=== PATIENT | female | born 1995 | race Caucasian/White ===

== ENCOUNTER 2019-02-02 22:08 | Outpatient (CLI) | payer BC | END 2019-02-02 22:09 | disposition critical access hospital (66) | LOC: EMS 22:08 | PROVIDERS: ATTEND Surgery | DX: R41.82 Altered mental status, unspecified (principal); R46.89 Other symptoms and signs involving appearance and behavior | CPT/HCPCS: A0425; A0429 ==

== ENCOUNTER 2019-02-02 22:29 | Emergency (ER) | payer BC ==
--- NOTE | 2019-02-02 22:51 | ED Physician Documentation ---
PD HPI OVERDOSE - Stated complaint Stated Complaint: INGESTION - Chief complaint Chief Complaint: Neuro - History obtained from History obtained from: Patient, EMS - History of Present Illness Timing - onset: Today Subtance(s) ingested: Single (reportedly using THC through the day then had some higher concentrated dose and became poorly responsive. Had some cider (not sure if hardened, but I presumed so) as well. No report of other drugs. No noted injury.) Associated symptoms: Decreased responsiveness Contributing factors: Accidental (no report through EMS of suicidal ideation nor intentional overdose.) Recently seen: Not recently seen Review of Systems Unable to obtain: Unresponsive PD PAST MEDICAL HISTORY - Past Medical History Past Medical History: No Respiratory: None Neuro: None - Present Medications Home Medications: Ambulatory Orders Medication Instructions Recorded Confirmed Home Medications Unobtainable 02/03/19 02/03/19 [HOME MEDICATIONS UNOBTAINABLE] - Allergies Allergies/Adverse Reactions: Allergies Allergy/AdvReac Type Severity Reaction Status Date / Time No Known Drug Allergies Allergy Verified 02/02/19 22:33 - Social History Does the pt smoke?: Yes Smoking Status: Smoker current status unk Does the pt drink ETOH?: No Substance Use and Type: Marijuana PD ED PE NORMAL - Vitals Vital signs reviewed: Yes - General General: Other (Moans and localizes to tactile or mildly painful stimulus. She does not open her eyes. Does not respond to verbal. She is positioned with her head of bed elevated. There is adequate respirations and oxygenation. There is a gag reflex present.) - HEENT HEENT: Atraumatic, PERRL, EOMI (not constricted), Moist mucous membranes, Pharynx benign - Neck Neck: No adenopathy - Cardiac Cardiac: RRR (tachycardic but regular), No murmur - Respiratory Respiratory: No respiratory distress, Clear bilaterally - Abdomen Abdomen: Normal bowel sounds, Non tender, Non distended - Derm Derm: Normal color, Warm and dry - Extremities Extremities: No deformity, No tenderness to palpate, No edema - Neuro Eye Opening: To Pain Motor: Localizes to Pain Verbal: None GCS Score: 8 Results - Vitals Vitals: Vital Signs - 24 hr 02/02/19 02/02/19 02/02/19 22:28 22:34 23:02 Temperature 37.8 C H Heart Rate 122 H 115 H 105 H Respiratory 14 20 Rate Blood Pressure 133/92 H 122/64 O2 Saturation 99 96 02/02/19 02/03/19 02/03/19 23:30 00:00 00:30 Temperature Heart Rate 97 99 81 Respiratory 18 16 16 Rate Blood Pressure 107/54 L 106/53 L 95/45 L O2 Saturation 97 97 95 02/03/19 02/03/19 02/03/19 01:00 01:30 02:00 Temperature 37.0 C Heart Rate 85 77 76 Respiratory 16 17 15 Rate Blood Pressure 98/46 L 98/50 L 94/47 L O2 Saturation 95 95 96 02/03/19 02/03/19 02/03/19 02:30 03:00 03:30 Temperature Heart Rate 73 75 73 Respiratory 16 16 16 Rate Blood Pressure 105/46 L 99/50 L 97/47 L O2 Saturation 95 96 96 02/03/19 02/03/19 02/03/19 04:00 04:30 05:00 Temperature 37.3 C Heart Rate 65 72 81 Respiratory 15 16 15 Rate Blood Pressure 98/54 L 98/46 L 113/56 L O2 Saturation 96 96 100 02/03/19 02/03/19 05:30 06:30 Temperature Heart Rate 70 98 Respiratory 20 16 Rate Blood Pressure 106/47 L 101/53 L O2 Saturation 97 100 Oxygen O2 Source Room air - EKG (time done) 23:02 Rate: Rate (enter#) (116) Rhythm: Sinus tachycardia [place]: Normal Intervals: Normal ND QRS: Normal Ischemia: Normal ST segments. No: ST elevation c/w ischemia, ST depression - Labs Labs: Laboratory Tests 02/02/19 02/02/19 02/02/19 22:44 22:44 22:52 WBC 7.9 RBC 4.42 Hgb 13.2 Hct 38.3 MCV 86.6 MCH 29.9 MCHC 34.6 RDW 13.0 Plt Count 312 MPV 8.1 Neut # (Auto) 5.2 Lymph # (Auto) 2.1 [place] # (Auto) 0.4 Eos # (Auto) 0.1 Baso # (Auto) 0.0 Absolute Nucleated RBC 0.00 Nucleated RBC % 0.0 Sodium 140 Potassium 3.8 Chloride 104 Carbon Dioxide 24 Anion Gap 12.0 BUN 17 Creatinine 0.7 Estimated GFR (MDRD) 106 Glucose 144 H Calcium 9.4 Total Bilirubin 0.7 AST 19 ALT 10 Alkaline Phosphatase 50 Total Protein 7.9 Albumin 4.5 Globulin 3.4 Albumin/Globulin Ratio 1.3 Lipase 22 Urine Color Urine Clarity Urine pH Ur Specific [place] Urine Protein Urine Glucose (UA) Urine Ketones Urine Occult Blood Urine Nitrite Urine Bilirubin Urine Urobilinogen Ur Leukocyte Esterase Ur Microscopic Review Urine Culture Comments Urine HCG, Qual Salicylates < 6.0 Urine Opiates Screen NEGATIVE Ur Oxycodone Screen NEGATIVE Urine Methadone Screen NEGATIVE Ur Propoxyphene Screen NEGATIVE Acetaminophen < 10 L Ur Barbiturates Screen NEGATIVE Ur Tricyclics Screen NEGATIVE Ur Phencyclidine Scrn NEGATIVE Ur Amphetamine Screen NEGATIVE U Methamphetamines Scrn NEGATIVE U Benzodiazepines Scrn NEGATIVE Urine Cocaine Screen NEGATIVE U Cannabinoids Screen POSITIVE H Ethyl Alcohol < 5.0 02/02/19 22:52 WBC RBC Hgb Hct MCV MCH MCHC RDW Plt Count MPV Neut # (Auto) Lymph # (Auto) [place] # (Auto) Eos # (Auto) Baso # (Auto) Absolute Nucleated RBC Nucleated RBC % Sodium Potassium Chloride Carbon Dioxide Anion Gap BUN Creatinine Estimated GFR (MDRD) Glucose Calcium Total Bilirubin AST ALT Alkaline Phosphatase Total Protein Albumin Globulin Albumin/Globulin Ratio Lipase Urine Color YELLOW Urine Clarity CLEAR Urine pH 6.0 Ur Specific [place] 1.020 Urine Protein NEGATIVE Urine Glucose (UA) NEGATIVE Urine Ketones NEGATIVE Urine Occult Blood NEGATIVE Urine Nitrite NEGATIVE Urine Bilirubin NEGATIVE Urine Urobilinogen 0.2 (NORMAL) Ur Leukocyte Esterase NEGATIVE Ur Microscopic Review NOT INDICATED Urine Culture Comments NOT INDICATED Urine HCG, Qual NEGATIVE Salicylates Urine Opiates Screen Ur Oxycodone Screen Urine Methadone Screen Ur Propoxyphene Screen Acetaminophen Ur Barbiturates Screen Ur Tricyclics Screen Ur Phencyclidine Scrn Ur Amphetamine Screen U Methamphetamines Scrn U Benzodiazepines Scrn Urine Cocaine Screen U Cannabinoids Screen Ethyl Alcohol - Rads (name of study) head CT Radiology: Prelim report reviewed (no acute process; normal head CT), See rad report PD MEDICAL DECISION MAKING - ED course Complexity details: reviewed results (Initial blood tests and toxicity tests showed 0 alcohol level and just THC on her drug screen. Given the significant decrease in level of consciousness, I added a CT head to ensure there is no signs of intracranial process. This was normal. Her vitals were stable and her oxygenation was good. I felt comfortable at that point allowing time for metabolism of drugs her medicines and biting her slowly improve. She was kept on the heart monitor and oximeter through the ER course with repeated assessments frequently.), re-evaluated patient (Through the night and had a gradual improvement in her alertness and responsiveness. However it did take several hours overnight. Subsequently she did awake and much more easily was able to answer questions fully. She states she did take the marijuana and that had some alcohol. She denies other drugs. She denies being assaulted. She denies any pains currently. She denies any intentional overdose with idea of hurting herself. She states she just over did the amount of drugs. She will try to call a friend for a ride and that this point would be discharged stable without any problems. Her vitals are good with normal heart rate.), considered differential, d/w patient Departure - Departure Clinical Impression: Overdose, drug Qualifiers: Encounter type: initial encounter Injury intent: accidental or unintentional Qualified Code(s): T50.901A - Poisoning by unspecified drugs, medicaments and biological substances, accidental (unintentional), initial encounter Altered mental status Qualifiers: Altered mental status type: coma Coma depth: [place] coma 3-8 Coma timing: at arrival to emergency department Qualified Code(s): R40.2432 - [place] coma scale score 3-8, at arrival to emergency department Condition: Stable Record reviewed to determine appropriate education?: Yes Instructions: ED Overdose Accidental Comments: Stay well-hydrated Tylenol or ibuprofen if needed for mild pains. Avoid recreational drugs and alcohol for at least several days to your feeling well. Use drugs and alcohol in moderation.
[2019-02-02 22:58] LABS: MUDS CUTOFF CONCENTRATIONS CUTOFF CONC BELOW:
[2019-02-02] MEDS ORDERED: SODIUM CHLORIDE 0.9% 1,000 ML IV ONE (23:00)
[2019-02-02 23:09] LABS: BASOPHILS % (AUTO) 0.5 %; EOSINOPHILS # (AUTO) 0.1 10^3/uL (0.0-0.7); EOSINOPHILS % (AUTO) 1.8 %; HGB - HEMOGLOBIN 13.2 g/dL (12.0-16.0); LYMPHOCYTES # (AUTO) 2.1 10^3/uL (1.5-3.5); LYMPHOCYTES % (AUTO) 26.6 %; MEAN CORPUSCULAR HEMOGLOBIN 29.9 pg (27.0-31.0); MEAN CORPUSCULAR HGB CONC 34.6 g/dL (32.0-36.0); MEAN CORPUSCULAR VOLUME 86.6 fL (81.0-99.0); MEAN PLATELET VOLUME 8.1 fL (7.9-10.8); MONOCYTES # (AUTO) 0.4 10^3/uL (0.0-1.0); MONOCYTES % (AUTO) 4.9 %; NEUTROPHILS # (AUTO) 5.2 10^3/uL (1.5-6.6); NEUTROPHILS % (AUTO) 66.2 %; PLT - PLATELET COUNT 312 10^3/uL (130-450); RED BLOOD COUNT 4.42 10^6/uL (4.20-5.40); WHITE BLOOD COUNT 7.9 x10^3/uL (4.8-10.8)
[2019-02-02 23:10] LABS: BILIRUBIN,URINE NEGATIVE (NEGATIVE); GLUCOSE, URINE (UA) NEGATIVE (NEGATIVE); KETONES,URINE (UA) NEGATIVE (NEGATIVE); LEUKOCYTE ESTERASE, URINE NEGATIVE (NEGATIVE); NITRITE,URINE NEGATIVE (NEGATIVE); OCCULT BLOOD,URINE NEGATIVE (NEGATIVE); PROTEIN,URINE NEGATIVE (NEGATIVE); UROBILINOGEN,URINE 0.2 (NORMAL) E.U./dL (NORMAL)
[2019-02-02 23:11] LABS: CLARITY,URINE CLEAR (CLEAR); HCG UR QUAL NEGATIVE
[2019-02-02 23:13] LABS: ACETAMINOPHEN < 10 ug/mL (10-30); ALBUMIN 4.5 g/dL (3.2-5.5); ALBUMIN/GLOBULIN RATIO 1.3 (1.0-2.2); ALKALINE PHOSPHATASE 50 IU/L (42-121); ALT ALANINE AMINOTRANSFERASE 10 IU/L (10-60); AST ASPARTATE AMINOTRANSFERASE 19 IU/L (10-42); BILIRUBIN,TOTAL 0.7 mg/dL (0.2-1.0); BUN - BLOOD UREA NITROGEN 17 mg/dL (6-20); CALCIUM 9.4 mg/dL (8.5-10.3); CARBON DIOXIDE - CO2 24 mmol/L (21-32); CHLORIDE 104 mmol/L (101-111); CREATININE 0.7 mg/dL (0.4-1.0); GFR - MDRD 106 (>89); GLUCOSE 144 mg/dL (70-100); LIPASE 22 U/L (22-51); SALICYLATE < 6.0 mg/dL; SODIUM 140 mmol/L (135-145); TOTAL PROTEIN 7.9 g/dL (6.7-8.2)
[2019-02-02 23:39] LABS: AMPHETAMINE SCREEN,URINE NEGATIVE (NEGATIVE); BENZODIAZEPINES SCREEN, URINE NEGATIVE (NEGATIVE); COCAINE SCREEN URINE NEGATIVE (NEGATIVE); METHADONE SCREEN, URINE NEGATIVE (NEGATIVE); METHAMPHETAMINES SCREEN, URINE NEGATIVE (NEGATIVE); OPIATE SCREEN, URINE NEGATIVE (NEGATIVE); OXYCODONE SCREEN, URINE NEGATIVE (NEGATIVE); PROPOXYPHENE SCREEN, URINE NEGATIVE (NEGATIVE); TRICYCLIC ANTIDEPRESSANT,URINE NEGATIVE (NEGATIVE)
--- NOTE | 2019-02-03 01:49 | CT Report ---
Reason: altered LOC abruptly tonight Procedure Date: 02/03/2019 Accession Number: [id number] / [id number] Procedure: CT - HEAD WO CPT Code: FULL RESULT: EXAM: CT HEAD EXAM DATE: 02/03/2019 01:13 AM. CLINICAL HISTORY: Decreased LOC abruptly tonight. COMPARISON: None. TECHNIQUE: Multiaxial CT images were obtained from the foramen magnum to the vertex. Reformats: Sagittal and coronal. IV contrast: None. In accordance with CT protocol optimization, one or more of the following dose reduction techniques were utilized for this exam: automated exposure control, adjustment of mA and/or KV based on patient size, or use of iterative reconstructive technique. FINDINGS: Parenchyma: No intraparenchymal hemorrhage. No evidence of mass, midline shift, or CT findings of infarction. Shaffer-white differentiation is distinct. Extraaxial Spaces: Normal for age. No subdural or epidural collections identified. Ventricles: Normal in size and position. Sinuses and Orbits: Imaged paranasal sinuses, orbits, and mastoids show no significant abnormality. Bones: No evidence of fracture or calvarial defect. Other: None. IMPRESSION: Normal head CT. [facility]
[2019-02-03 06:40] VITALS: BP 101/53
== END 2019-02-03 07:30 | disposition home or self-care (01) ==
LOC: ED 22:29
DX: T40.7X1A Poisoning by cannabis (derivatives), accidental (unintentional), initial encounter (principal); R40.2432 Glasgow coma scale score 3-8, at arrival to emergency department; R00.0 Tachycardia, unspecified; F17.200 Nicotine dependence, unspecified, uncomplicated
CPT/HCPCS: 36415; 70450; 80053; 80306; 80307; 80320; 80329; 81001; 81003; 81025; 83690; 85025; 87086; 93005; 96360; 99284; 99285